=== PATIENT | female | born 1950 | race Caucasian/White ===

== ENCOUNTER 2016-11-06 09:20 | Outpatient (CLI) | payer MEDICARE, OTHER ==
[2013-12-21 09:33] VITALS: BP 140/82
== END 2016-11-06 09:21 ==
LOC: LAB 09:20
PROVIDERS: ATTEND Family Medicine
DX: E11.9 Type 2 diabetes mellitus without complications (principal)
CPT/HCPCS: 36415; 83036

== ENCOUNTER 2017-05-17 10:34 | Outpatient (CLI) | payer MEDICARE, OTHER ==
[2013-12-21 09:33] VITALS: BP 140/82
== END 2017-05-17 10:35 ==
LOC: LAB 10:34
PROVIDERS: ATTEND Family Medicine
DX: E11.9 Type 2 diabetes mellitus without complications (principal); Z79.4 Long term (current) use of insulin
CPT/HCPCS: 36415; 83036

== ENCOUNTER 2017-11-22 09:39 | Outpatient (CLI) | payer MEDICARE, OTHER ==
[2013-12-21 09:33] VITALS: BP 140/82
[2017-11-22 10:30] LABS: BASOPHILS % 0.4 (0.0-1.5); EOSINOPHILS % 2.2 % (0.0-6.8); MEAN CORPUSCULAR HEMOGLOBIN 29.4 pg (28.0-34.0); MEAN CORPUSCULAR VOLUME 89.1 fl (80.0-100.0); MONOCYTES % 5.4 % (0.0-11.0); NEUTROPHILS # 3.3 # k/uL (1.4-7.7)
[2017-11-22 10:48] LABS: eGFR (African) > 60; eGFR (Non-African) > 60
== END 2017-11-22 09:40 ==
LOC: LAB 09:39
PROVIDERS: ATTEND Family Medicine
DX: E11.9 Type 2 diabetes mellitus without complications (principal); E78.00 Pure hypercholesterolemia, unspecified; I10 Essential (primary) hypertension
CPT/HCPCS: 36415; 80053; 80061; 83036; 85025

== ENCOUNTER 2018-03-03 08:40 | Outpatient (CLI) | payer MEDICARE, OTHER ==
[2013-12-21 09:33] VITALS: BP 140/82
== END 2018-03-03 08:42 ==
LOC: LAB 08:40
PROVIDERS: ATTEND Family Medicine
DX: E11.9 Type 2 diabetes mellitus without complications (principal)
CPT/HCPCS: 36415; 83036

== ENCOUNTER 2018-05-02 09:45 | Outpatient (CLI) | payer MEDICARE, OTHER ==
[2013-12-21 09:33] VITALS: BP 140/82
== END 2018-05-02 09:50 ==
LOC: LAB 09:45
PROVIDERS: ATTEND Family Medicine
DX: E11.9 Type 2 diabetes mellitus without complications (principal)
CPT/HCPCS: 36415; 83036

== ENCOUNTER 2018-08-06 08:39 | Outpatient (CLI) | payer MEDICARE, OTHER ==
[2013-12-21 09:33] VITALS: BP 140/82
== END 2018-08-06 08:40 ==
LOC: LAB 08:39
PROVIDERS: ATTEND Family Medicine
DX: E11.9 Type 2 diabetes mellitus without complications (principal); Z79.4 Long term (current) use of insulin
CPT/HCPCS: 36415; 83036

== ENCOUNTER 2018-10-10 15:27 | Inpatient (IN) | payer MEDICARE, OTHER ==
[2018-10-10] MEDS ORDERED: ONDANSETRON HCL/PF 4 MG/ 2ML VIAL IVP ONE (15:41)
--- NOTE | 2018-10-10 15:41 | ED Physician Documentation ---
General Adult - HISTORIAN Historian: patient - HPI Stated Complaint: I feel terrible Chief Complaint: General Adult Additional Information: Patient presents to ED via Dr. Cody's office with chills, vomiting, malaise, and decreased appetite since Saturday. Influenza was negative. Onset: days ago (3) Timing: still present Severity: moderate - ROS CONST: fever, weakness EYES/ENT: none CVS/RESP: denies: cough GI/: vomiting. denies: abdominal pain, problems urinating MS/SKIN/LYMPH: none NEURO/PSYCH: denies: headache - PAST HX Past History: none Other History: diabetes Type 2 Allergies/Adverse Reactions: Allergies Allergy/AdvReac Type Severity Reaction Status Date / Time No Known Drug Allergies Allergy Verified 10/10/18 17:46 Home Medications: Ambulatory Orders Medication Instructions Recorded Aspirin [Aspirin Ec] 81 mg PO DAILY #90 u2 11/14/12 - SOCIAL HX Smoking History: non-smoker Alcohol Use: none Drug Use: none - FAMILY HX Family History: No - VITAL SIGNS Vital Signs: Vital Signs Temp Pulse Resp BP Pulse Ox 140/82 12/21/13 09:33 - REVIEWED ASSESSMENTS Nursing Assessment Reviewed: Yes Vitals Reviewed: Yes Progress - Progress Progress: 1700 Patient feeling better after IV fluids. [address] Cody for admission, he agrees. ED Results Lab/Radiology - Radiology Radiology Impressions: Report Submission Date: Oct 10, 2018 6:14:58 PM ORANGE PICKER MACHINE OPERATOR Patient Study Name: ORIANA DALTON Date: Oct 10, 2018 5:52:24 PM ORANGE PICKER MACHINE OPERATOR Modality Type: CT\SR Gender: F Description: CT ABD PELVIS W/O CO : 50 Institution: [facility] Physician: DAVID HEALY Computed tomography abdomen pelvis without contrast History: Vomiting and leukocytosis Findings: Transverse abdomen and pelvis sections are obtained without contrast. There are no comparisons. Minimal bibasilar atelectasis, calcified left lower lobe granuloma, partially contracted gallbladder, mild aortoiliac atherosclerosis, and mild asymmetric left perinephric stranding are observed. The right kidney, adrenals, spleen, liver, pancreas, and mesenteric structures are normal. Bowel loops exhibit normal caliber and wall thickness including a normal appendix. Pelvic sections reveal multiple small uterine fibroids and unremarkable urinary bladder. Pelvic bowel loops are within normal limits. The urinary bladder is unremarkable. Impression: 1. Mild left perinephric stranding. Recommend correlation with urinalysis as this finding is nonspecific. No evidence of obstructive uropathy or urolithiasis. 2. Uterine fibroids. Electronically signed on Oct 10, 2018 6:14:58 PM ORANGE PICKER MACHINE OPERATOR by: Leoncio Mcmahan - Orders Orders: ED Orders Category Date Time Status Place IV Lock 1T Care 10/10/18 15:34 Active CHEST 2VIEW [RAD] Stat Exams 10/10/18 Ordered CBC/PLATELET/DIFF Routine Lab 10/10/18 Ordered CMP Routine Lab 10/10/18 Ordered General Adult Physical Exam - PHYSICAL EXAM GENERAL APPEARANCE: ill-appearing EENT: BRENDA, dry mucous membranes NECK: supple RESPIRATORY: no resp distress, breath sounds normal. No: wheezes CVS: reg rate & rhythm, heart sounds normal, no murmur ABDOMEN: soft, normal bowel sounds, no distension, non-tender BACK: no CVA tenderness SKIN: warm/dry, pallor EXTREMITIES: non-tender, no edema NEURO: oriented X3, motor nml, mood/affect nml Discharge Clincal Impression: Fever of unknown origin Elevated WBC count Qualifiers: Leukocytosis type: unspecified Qualified Code(s): D72.829 - Elevated white blood cell count, unspecified Referrals: Toñito Cody MD [Primary Care Provider] - 2 Days Condition: Fair Disposition: ADMITTED INPATIENT Decision to Admit: [id number] Date of Decison to Admit: 10/10/18 Decision Time: 19:24
[2018-10-10] MEDS ORDERED: 0.9 % SODIUM CHLORIDE 1,000 ML IV ONE ×3 (16:14→16:46)
[2018-10-10 16:37] LABS: eGFR (Non-African) 37
[2018-10-10] MEDS ORDERED: INSULIN REGULAR, HUMAN 100 UNIT/ML 3ML VIAL IV ONE ×2 (16:46→19:03)
[2018-10-10 16:55] LABS: MEAN CORPUSCULAR HEMOGLOBIN 29.4 pg (28.0-34.0)
[2018-10-10 16:56] LABS: MONOCYTES % 10 % (0-11); SEGMENTED NEUTROPHILS % 82 % (39-79)
[2018-10-10] MEDS ORDERED: PIPERACILLIN SODIUM/TAZOBACTAM 3.375 GM in 0.9 % SODIUM CHLORIDE(MINIBAG+ 100 ML IV ONE (18:38)
[2018-10-10 18:49] LABS: APPEARANCE,URINE CLOUDY (CLEAR); COLOR,URINE BROWN (YELLOW); OCCULT BLOOD,URINE 2+ (NEGATIVE); UROBILINOGEN URINE 0.2 Eu (0.2-1.0)
[2018-10-10] MEDS ORDERED: VANCOMYCIN HCL 1 GM in 0.9 % SODIUM CHLORIDE 500 ML IV ONE (19:54)
[2018-10-10] MEDS: 0.9 % SODIUM CHLORIDE 1,000 ML IV SCH (20:02)
[2018-10-10] MEDS ORDERED: DOCUSATE SODIUM 100 MG CAPSULE PO PRN (20:04)
[2018-10-10] MEDS ORDERED: HYDROcodone /APAP 5/325 1 EACH TABLET PO PRN (20:04)
[2018-10-10] MEDS ORDERED: MAG HYDROX/ALUMINUM HYD/SIMETH 30 ML UDC PO PRN (20:04)
[2018-10-10] MEDS ORDERED: BISACODYL 5 MG TABLET.DR PO PRN (20:04)
[2018-10-10] MEDS ORDERED: VANCOMYCIN HCL 1 GM VIAL IV ONE (20:05)
[2018-10-10] MEDS ORDERED: 0.9 % SODIUM CHLORIDE 500 ML IV ONE (20:06)
[2018-10-10 20:56] VITALS: BMI 27.6
--- NOTE | 2018-10-10 21:29 | History and Physical Report ---
History of Present Illnes - History of Present Illness Reason for Visit: Sepsis History of Present Illness: This is a 68 year old female patient, well known to me who presented to my office this afternoon with fever and malaise for the past two days. She denied any focal illness or symptoms. Her fever on presentation to the office was 101.7, influenza was negative and urinalysis (dip) was clear. Due to her degree of illness, she was sent to the ER for further evaluation. While there, she had a chest x ray done (clear), as well as a CT of her abdomen and pelvis, which was unrevealing. Repeat UA with micro was also negative for infection. Her white count was markedly elevated at 26K with a left shift, she was azotemic, and hyponatremic (126) also. She is admitted with a diagnosis of sepsis/fever of unknown origin/hyponatremia/leukocytosis. - Past Medical History Cardiac: HTN, Hyperlipidemia. 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 Alcohol: None Drugs: None Lives: With Family Domestic Violence: Negative - Health Maintenance Health Maintenance: Cholesterol Influenza Vaccine: Current for this Influenza Season Pneumonia Vaccine: Yes Resuscitation Status: Resusciation Status Resuscitation Status Full Code - Unable to Obtain History Unable to Obtain: No Review of Systems - Review of Systems Constitutional: Fever, Chills, Sweats, Weakness, Malaise Eyes: negative: pain, vision change ENT: negative: Ear Pain Respiratory: negative: Cough, Shortness of Breath Cardiovascular: negative: Chest Pain Gastrointestinal: Nausea, Vomiting. negative: Abdominal Pain, Diarrhea Genitourinary: negative: Dysuria, Frequency, Incontinence Musculoskeletal: negative: Neck Pain Skin: negative: Rash Neurological: Weakness. negative: Change in Speech, Confusion - Medications/Allergies Allergies/Adverse Reactions: Allergies Allergy/AdvReac Type Severity Reaction Status Date / Time No Known Drug Allergies Allergy Verified 10/10/18 17:46 Current Inpatient Medications: Current Inpatient Medications Aspirin (Ecotrin) 81 mg PO DAILY [facility] Bisacodyl (Dulcolax) 10 mg PO DAILY PRN PRN Reason: Constipation Docusate Sodium (Colace) 100 mg PO DAILY PRN PRN Reason: Constipation Heparin Sodium (Porcine) (Heparin) 5,000 unit SQ Q8 [facility] Sodium Chloride (Normal Saline) 1,000 mls @ 100 mls/hr IV Q10H [facility] Last Admin: 10/10/18 20:02 Dose: 100 mls/hr Piperacillin Sod/Tazobactam (Sod 3.375 gm/ Sodium Chloride) 100 mls @ 200 mls/hr IV Q6 [facility] Vancomycin HCl 1 gm/ Sodium (Chloride) 500 mls @ 250 mls/hr IV NOW ONE Stop: 10/10/18 21:53 Miscellaneous (Chem Sticks) 1 each CHEMQ [facility] Last Admin: 10/10/18 17:30 Dose: 1 each Miscellaneous (Chem Sticks) 1 each CHEMQID [facility] Last Admin: 10/10/18 19:10 Dose: 1 each Miscellaneous (Chem Sticks) 1 each CHEMQID PRN PRN Reason: blood sugar Last Admin: 10/10/18 19:55 Dose: 1 each Miscellaneous (Chem Sticks) 1 each CHEMQID [facility]; Protocol Last Admin: 10/10/18 21:17 Dose: 1 each Miscellaneous (Vancomycin Pharmacy To Dose) 1 each IV NOW [facility] Sodium Chloride (Normal Saline Flush) 3 ml IV BID [facility] Exam - Exam Vital Signs: Vital Signs (72 hours) 10/10/18 10/10/18 10/10/18 15:33 20:19 20:50 Temperature 38.3 F L 99 F 98.6 F Pulse Rate [ 99 H 93 H 79 Pulse ox] Respiratory 16 18 20 Rate Blood Pressure 134/64 114/72 111/57 [Right Arm] O2 Sat by Pulse 94 94 96 Oximetry 10/10/18 20:51 Temperature 98.6 F Pulse Rate [ 79 Pulse ox] Respiratory 20 Rate Blood Pressure 111/57 [Right Arm] O2 Sat by Pulse 96 Oximetry General: Alert, Oriented to Person, Oriented to Place, Oriented to Time, Other (Acutely ill) HEENT: Atraumatic, PERRLA, EOMI, Hearing Grossly Normal, Other (Mucous membranes are dry) Neck: No: Stridor Lungs: Clear to auscultation, Normal air movement, Speaks full Sentences. No: Respiratory Distress, Wheezes Cardiovascular: Regular rate, Normal S1, Normal S2 Murmur: No: Systolic Murmur Murmur Location: No: Other Abdomen: Normal bowel sounds, Soft, No tenderness, No hepatospenomegaly, No masses. No: Distended, Rigid Genitourinary: No: Other Male Genitourinary: No: Other Female Genitourinary: No: Other Integumentary: Normal, [place], Warm, Dry, Decreased Turgor Extremities: No clubbing, No cyanosis, No edema Neurological: Normal speech, Strength Equal Bilat, Normal tone, Generalized Weakness Psych/Mental Status: Mental status NL - Laboratory Results Laboratory Results: Laboratory Results 10/10/18 10/10/18 10/10/18 15:50 15:50 18:30 WBC 26.30 H RBC 4.64 Hgb 13.7 Hct 41.2 MCV 89.0 MCH 29.4 MCHC 33.1 RDW 12.7 Plt Count 268 Seg Neutrophils % 82 H Band Neutrophils % 4 Lymphocytes % 4 L Monocytes % 10 Sodium 126 L Potassium 4.1 Chloride 87 L Carbon Dioxide 21 L BUN 29 H Creatinine 1.48 H Estimated Creat Clear 52 Est GFR ( Amer) > 60 Est GFR (Non-Af Amer) 37 L Glucose 451 H Calcium 9.5 Total Bilirubin 2.0 H AST 27 ALT 19 Alkaline Phosphatase 122 Total Protein 7.1 Albumin 4.4 Urine Color Brown Urine Appearance Cloudy H Urine pH 5.0 Ur Specific [place] 1.015 Urine Protein 1+ H Urine Ketones 3+ H Urine Occult Blood 2+ H Urine Nitrite Negative Urine Bilirubin 1+ H Urine Urobilinogen 0.2 Ur Leukocyte Esterase Negative Urine Glucose 3+ H Assessment/Plan - Assessment/Plan (1) Sepsis Status: Acute Current Visit: Yes Qualifiers: Sepsis type: sepsis due to unspecified organism Qualified Code(s): A41.9 - Sepsis, unspecified organism Assessment: Blood cultures have been obtained Broad spectrum antibiotics (Zosyn and Vancomycin) (2) Fever of unknown origin Status: Acute Current Visit: Yes Assessment: Antipyretics Treat cause (sepsis) (3) Diabetes mellitus Status: Acute Current Visit: Yes Qualifiers: Diabetes mellitus type: type 2 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 insulin use: with usp use Diabetes mellitus complication status: without complication Qualified Code(s): E11.9 - Type 2 diabetes mellitus without complications; Z79.4 - senior living (current) use of insulin Assessment: Continue Lantus Add sliding scale insulin (4) Hyponatremia Status: Acute Current Visit: Yes Assessment: Hydrate with NS (5) Dehydration Status: Acute Current Visit: Yes (6) Elevated WBC count Status: Acute Current Visit: Yes Qualifiers: Leukocytosis type: unspecified Qualified Code(s): D72.829 - Elevated white blood cell count, unspecified Assessment: Due to sepsis VTE Assessment - RISK FACTOR SCORE VTE RISK FACTOR SCORES: AGE OVER 60 YEARS, SEPSIS - RISK VTE MODERATE RISK: SCORE OF 2 (RISK PROXIMAL DVT 2-4%) PROPHYAXIS NEEDED (On Lovenox)
[2018-10-10] MEDS: INSULIN GLARGINE,HUM.REC.ANLOG 100 UNIT/ML PEN.INJCTR SQ SCH (22:50)
[2018-10-10] MEDS: HEPARIN SODIUM 5000 UNIT/1 ML SQ SCH (22:53)
[2018-10-10] MEDS: SALINE FLUSH 10 ML DISP.SYRIN IV SCH (23:27)
[2018-10-11] MEDS: PIPERACILLIN SODIUM/TAZOBACTAM 3.375 GM in 0.9 % SODIUM CHLORIDE(MINIBAG+ 100 ML IV SCH ×4 (00:01→17:33)
--- NOTE | 2018-10-11 04:26 | Diagnostic Imaging Report ---
DAVID HEALY [facility] [address] [facility] [address] [place] [address]. [id number] Report Submission Date: Oct 10, 2018 4:22:32 PM DEMAND PLANNER Patient Study Name: ORIANA DALTON Date: Oct 10, 2018 3:58:41 PM DEMAND PLANNER Modality Type: DX Gender: F Description: CHEST 2VIEW : 50 Institution: [facility] Physician: DAVID HEALY Examination: PA and lateral chest. History: Evaluate lung devlin. Comparison exam: None provided. Findings: PA and lateral views of the chest demonstrates a normal cardiac and mediastinal silhouette. Tortuous aorta. No focal infiltrate. No blunting of the costophrenic margins. Scattered granuloma. Osseous structures are appropriate for age. Impression: No acute pulmonary process. Electronically signed on Oct 10, 2018 4:22:32 PM DEMAND PLANNER by: Star COUGHLIN
[2018-10-11] MEDS: 0.9 % SODIUM CHLORIDE 1,000 ML IV SCH ×2 (04:27→15:55)
--- NOTE | 2018-10-11 04:27 | Diagnostic Imaging Report ---
DAVID HEALY [facility] [address] [facility] [address] [place], [place]. 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 There are no comparisons. Minimal bibasilar atelectasis, calcified left lower lobe granuloma, partially contracted gallbladder, mild aortoiliac atherosclerosis, and mild asymmetric left perinephric stranding are observed. The right kidney, adrenals, spleen, liver, pancreas, and mesenteric structures are normal. Bowel loops exhibit normal caliber and wall thickness including a normal appendix. Pelvic sections reveal multiple small uterine fibroids and unremarkable urinary bladder. Pelvic bowel loops are within normal limits. The urinary bladder is unremarkable. Impression: 1. Mild left perinephric stranding. Recommend correlation with urinalysis as this finding is nonspecific. No evidence of obstructive uropathy or urolithiasis. 2. Uterine fibroids. Electronically signed on Oct 10, 2018 6:14:58 PM UTILITY LOCATE TECHNICIAN by: Leoncio COUGHLIN
[2018-10-11] MEDS ORDERED: PIPERACILLIN SODIUM/TAZOBACTAM 3.375 GM VIAL IV ONE ×4 (04:33→23:23)
[2018-10-11] MEDS ORDERED: 0.9 % SODIUM CHLORIDE(MINIBAG+ 100 ML IV ONE ×3 (04:34→23:23)
[2018-10-11] MEDS: HEPARIN SODIUM 5000 UNIT/1 ML SQ SCH ×3 (05:30→23:30)
[2018-10-11] MEDS ORDERED: VANCOMYCIN PHARMACY TO DOSE IV SCH (07:00)
[2018-10-11 07:06] LABS: MEAN CORPUSCULAR HEMOGLOBIN 29.6 pg (28.0-34.0)
[2018-10-11 07:11] LABS: MONOCYTES % 9 % (0-11); SEGMENTED NEUTROPHILS % 85 % (39-79)
[2018-10-11 07:45] LABS: eGFR (Non-African) 44
[2018-10-11] MEDS: SALINE FLUSH 10 ML DISP.SYRIN IV SCH ×2 (08:42→23:50)
[2018-10-11] MEDS: ASPIRIN EC 81 MG TABLET.DR PO SCH (08:42)
[2018-10-11] MEDS: INSULIN LISPRO 100 UNIT/ML 3ML VIAL SQ SCH ×4 (08:42→23:33)
--- NOTE | 2018-10-11 09:59 | Inpatient Progress Note ---
Subjective - Required Recertification Statement I anticipate X number of days because-include discharge plan: 2 - Review of Systems Events since last encounter: Lupe is feeling much better today. She had a low grade fever this morning. Her white count is minimally decreased. Her blood pressure is stable. As expected, her blood sugar is elevated, and she is requiring SSI. She is urinating well and remains on IVF. She is also eating well this morning. She is very weak, and had difficulty making it to the bathroom, but did so much more easily than yesterday. General: Chills, Fatigue, Malaise. Denies: Night Sweats HEENT: Denies: Head Aches, Visual Changes Pulmonary: Denies: Dyspnea, Cough Cardiovascular: Denies: Chest Pain, Palpitations Gastrointestinal: Nausea. Denies: Vomiting Genitourinary: Denies: Dysuria, Frequency Musculoskeletal: Denies: Neck Pain Neurological: Weakness. Denies: Change in Speech, Confusion Objective - Exam Vitals and I&O: Vital Signs Temp 100 F H 10/11/18 09:40 Pulse 92 H 10/11/18 09:40 Resp 16 10/11/18 09:40 BP 124/66 10/11/18 09:40 Pulse Ox 93 10/11/18 09:40 Intake & Output 10/10/18 10/10/18 10/11/18 11:59 23:59 11:59 Intake Total 200 860 Output Total 700 1100 Balance -500 -240 Weight 79.832 kg Intake: IV 200 500 Left Antecubital 200 500 Oral 360 Output: Urine 700 1100 Other: Voiding Method Toilet Toilet # Voids 1 # Bowel Movements 0 General: Alert, Oriented to Person, Oriented to Place, Oriented to Time HEENT: Atraumatic, PERRLA. No: Nose Mucous membr. moist/[place] (dry) Neck: Supple, No JVD Lungs: Clear to auscultation, Normal air movement, Speaks full Sentences. No: Prolonged Expiration Cardiovascular: Regular rate, Normal S1, Normal S2 Abdomen: Normal bowel sounds, Soft, No tenderness Extremities: No clubbing, No cyanosis, No edema, Normal pulses Skin: Normal, [place], Warm Neurological: Normal speech, Generalized Weakness Psych/Mental Status: Mental status NL - Results Results: Laboratory Results WBC 23.30 K/ul (4.00-12.00) H 10/11/18 06:00 RBC 3.93 M/ul (3.90-5.20) 10/11/18 06:00 Hgb 11.6 g/dL (12.0-16.0) L 10/11/18 06:00 Hct 34.9 % (34.5-46.5) 10/11/18 06:00 MCV 89.0 fl (80.0-100.0) 10/11/18 06:00 MCH 29.6 pg (28.0-34.0) 10/11/18 06:00 MCHC 33.3 g/dL (30.0-36.0) 10/11/18 06:00 RDW 13.1 % (11.3-14.3) 10/11/18 06:00 Plt Count 238 K/mm3 (130-400) 10/11/18 06:00 Seg Neutrophils % 85 % (39-79) H 10/11/18 06:00 Band Neutrophils % 2 % (0-12) 10/11/18 06:00 Lymphocytes % 4 % (16-50) L 10/11/18 06:00 Monocytes % 9 % (0-11) 10/11/18 06:00 Sodium 136 mmol/L (136-145) 10/11/18 06:00 Potassium 3.5 mmol/L (3.5-5.1) 10/11/18 06:00 Chloride 100 mmol/L (98-107) 10/11/18 06:00 Carbon Dioxide 17 mmol/L (22-30) L 10/11/18 06:00 BUN 23 mg/dL (7-17) H 10/11/18 06:00 Creatinine 1.27 mg/dL (0.52-1.04) H 10/11/18 06:00 Estimated Creat Clear 62 10/11/18 06:00 Est GFR ( Amer) > 60 (60-) 10/11/18 06:00 Est GFR (Non-Af Amer) 44 (60-) L 10/11/18 06:00 Glucose 393 mg/dL (74-106) H 10/11/18 06:00 Calcium 8.5 mg/dL (8.4-10.2) 10/11/18 06:00 Total Bilirubin 2.0 mg/dL (0.2-1.3) H 10/10/18 15:50 AST 27 U/L (15-46) 10/10/18 15:50 ALT 19 U/L (13-69) 10/10/18 15:50 Alkaline Phosphatase 122 U/L (38-126) 10/10/18 15:50 Total Protein 7.1 g/dL (6.3-8.2) 10/10/18 15:50 Albumin 4.4 g/dL (3.5-5.0) 10/10/18 15:50 Urine Color Brown (YELLOW) 10/10/18 18:30 Urine Appearance Cloudy (CLEAR) H 10/10/18 18:30 Urine pH 5.0 (5.0 - 8.0) 10/10/18 18:30 Ur Specific [place] 1.015 (1.010-1.030) 10/10/18 18:30 Urine Protein 1+ mg/dL (NEGATIVE) H 10/10/18 18:30 Urine Ketones 3+ mg/dL (NEGATIVE) H 10/10/18 18:30 Urine Occult Blood 2+ (NEGATIVE) H 10/10/18 18:30 Urine Nitrite Negative (NEGATIVE) 10/10/18 18:30 Urine Bilirubin 1+ (NEGATIVE) H 10/10/18 18:30 Urine Urobilinogen 0.2 Eu (0.2-1.0) 10/10/18 18:30 Ur Leukocyte Esterase Negative (NEGATIVE) 10/10/18 18:30 Urine Glucose 3+ mg/dL (NEGATIVE) H 10/10/18 18:30 Assessment/Plan - Assessment/Plan (1) Sepsis Status: Acute Current Visit: Yes Qualifiers: Sepsis type: sepsis due to unspecified organism Qualified Code(s): A41.9 - Sepsis, unspecified organism Assessment: Continue broad spectrum antibiotics, await blood culture results Check a CXR today to r/o a pneumonia that was not visible earlier due to her dehydration (2) Fever of unknown origin Status: Acute Current Visit: Yes Assessment: Continue to await blood cultures [place] WBC Check CXR (3) Diabetes mellitus Status: Acute Current Visit: Yes Qualifiers: Diabetes mellitus type: type 2 Diabetes mellitus alf insulin use: with alf use Diabetes mellitus complication status: without complication Qualified Code(s): E11.9 - Type 2 diabetes mellitus without complications; Z79.4 - terminal manager (current) use of insulin Assessment: Continue Levemir/SSI (4) Hyponatremia Status: Acute Current Visit: Yes Assessment: Now normalized with hydration (5) Dehydration Status: Acute Current Visit: Yes Assessment: Improved Plan: Continue IVF (6) Elevated WBC count Status: Acute Current Visit: Yes Qualifiers: Leukocytosis type: unspecified Qualified Code(s): D72.829 - Elevated white blood cell count, unspecified Assessment: Follow
--- NOTE | 2018-10-11 12:03 | Diagnostic Imaging Report ---
[facility] SURG [facility] [address] [facility].[address] [address] Report Submission Date: Oct 11, 2018 11:03:27 AM GUITAR REPAIRER Patient Study Name: ORIANA DALTON Date: Oct 11, 2018 10:23:49 AM GUITAR REPAIRER Modality Type: DX Gender: F Description: CHEST 2VIEW : 50 Institution: [facility] Physician: [facility]/MED SURG Chest, 2 view History: FEVER Findings: The heart size is normal. Small calcified granuloma seen in the right chest. There is blunting the bilateral costophrenic angles consistent with trace effusions, left greater than right and new. The osseous structures are normal. Impression: One. Small bilateral pleural effusions now present, left greater than right. Electronically signed on Oct 11, 2018 11:03:27 AM GUITAR REPAIRER by: Lui COUGHLIN
[2018-10-11] MEDS ORDERED: 0.9 % SODIUM CHLORIDE 0 ML IV ONE (12:27)
[2018-10-11] MEDS ORDERED: 0.9 % SODIUM CHLORIDE 100 ML IV ONE (12:29)
[2018-10-11] MEDS ORDERED: ACETAMINOPHEN 325 MG TABLET ONE (14:16)
[2018-10-11] MEDS: ACETAMINOPHEN 325 MG TABLET PO PRN ×2 (14:20→19:14)
[2018-10-11] MEDS ORDERED: 0.9 % SODIUM CHLORIDE 1,000 ML IV ONE (15:52)
[2018-10-11] MEDS ORDERED: ONDANSETRON HCL/PF 4 MG/ 2ML VIAL IVP PRN (22:31)
[2018-10-11] MEDS: INSULIN GLARGINE,HUM.REC.ANLOG 100 UNIT/ML PEN.INJCTR SQ SCH (23:38)
[2018-10-12] MEDS ORDERED: 0.9 % SODIUM CHLORIDE 1,000 ML IV ONE ×2 (00:44→11:53)
[2018-10-12] MEDS: PIPERACILLIN SODIUM/TAZOBACTAM 3.375 GM in 0.9 % SODIUM CHLORIDE(MINIBAG+ 100 ML IV SCH ×4 (00:46→19:37)
[2018-10-12] MEDS: 0.9 % SODIUM CHLORIDE 1,000 ML IV SCH ×2 (00:48→14:46)
[2018-10-12] MEDS ORDERED: PIPERACILLIN SODIUM/TAZOBACTAM 3.375 GM VIAL IV ONE ×3 (05:09→21:46)
[2018-10-12] MEDS ORDERED: 0.9 % SODIUM CHLORIDE(MINIBAG+ 100 ML IV ONE ×2 (05:10→21:48)
[2018-10-12] MEDS: HEPARIN SODIUM 5000 UNIT/1 ML SQ SCH ×3 (05:14→22:01)
[2018-10-12 07:45] LABS: eGFR (Non-African) > 60
[2018-10-12 07:46] LABS: MEAN CORPUSCULAR HEMOGLOBIN 29.4 pg (28.0-34.0)
[2018-10-12] MEDS: INSULIN LISPRO 100 UNIT/ML 3ML VIAL SQ SCH ×4 (07:54→21:52)
[2018-10-12] MEDS: ASPIRIN EC 81 MG TABLET.DR PO SCH (09:44)
[2018-10-12] MEDS: SALINE FLUSH 10 ML DISP.SYRIN IV SCH ×2 (09:45→21:50)
--- NOTE | 2018-10-12 12:18 | Inpatient Progress Note ---
Subjective - Required Recertification Statement I anticipate X number of days because-include discharge plan: 2 - Review of Systems Events since last encounter: Lupe is doing much better today. She is no longer febrile, and her white count has come down to 11K from 23K. Her blood sugars are better controlled. She is eating well. Her blood cultures grew out gram negative rods in her anaerobic bottle. ID/sensitivity are pending and for the meantime, she continues to be on Vancomycin and Zosyn. It appears that her vancomycin was ordered as a one time dose, but showed up as an active medication on orders. I have restarted it today. Her potassium is low this morning, so I have changed her fluids to NS with 40 meq of KCl. General: Chills. Denies: Night Sweats HEENT: Denies: Head Aches, Visual Changes Pulmonary: Denies: Dyspnea, Cough Cardiovascular: Denies: Chest Pain, Palpitations Gastrointestinal: Denies: Nausea, Vomiting Genitourinary: Denies: Dysuria Musculoskeletal: Denies: Neck Pain, Shoulder Pain Neurological: Weakness. Denies: Confusion Objective - Exam Vitals and I&O: Vital Signs Temp 99.2 F 10/12/18 09:06 Pulse 99 H 10/12/18 09:06 Resp 18 10/12/18 09:06 BP 122/70 10/12/18 09:06 Pulse Ox 92 10/12/18 09:06 Intake & Output 10/11/18 10/12/18 10/12/18 23:59 11:59 23:59 Intake Total 1660 3280 Output Total 1000 1200 Balance 660 2080 Intake: IV 2800 Left Antecubital 2800 Oral 1660 480 Output: Urine 1000 1200 Other: Voiding Method Toilet Toilet # Voids 2 # Bowel Movements 0 General: Alert, Oriented to Person, Oriented to Place, Oriented to Time, Cooperative HEENT: Atraumatic, PERRLA Neck: Supple Lungs: Clear to auscultation, Normal air movement, Speaks full Sentences Cardiovascular: Regular rate, Normal S1 Abdomen: Normal bowel sounds, Soft, No tenderness Extremities: No clubbing, No cyanosis, No edema Skin: Normal, [place] Neurological: Normal speech Psych/Mental Status: Mental status NL - Results Results: Laboratory Results WBC 11.50 K/ul (4.00-12.00) 10/12/18 06:10 RBC 3.76 M/ul (3.90-5.20) L 10/12/18 06:10 Hgb 11.0 g/dL (12.0-16.0) L 10/12/18 06:10 Hct 33.1 % (34.5-46.5) L 10/12/18 06:10 MCV 88.0 fl (80.0-100.0) 10/12/18 06:10 MCH 29.4 pg (28.0-34.0) 10/12/18 06:10 MCHC 33.4 g/dL (30.0-36.0) 10/12/18 06:10 RDW 13.0 % (11.3-14.3) 10/12/18 06:10 Plt Count 233 K/mm3 (130-400) 10/12/18 06:10 Seg Neutrophils % 85 % (39-79) H 10/11/18 06:00 Band Neutrophils % 2 % (0-12) 10/11/18 06:00 Lymphocytes % 4 % (16-50) L 10/11/18 06:00 Monocytes % 9 % (0-11) 10/11/18 06:00 Sodium 135 mmol/L (136-145) L 10/12/18 06:10 Potassium 3.0 mmol/L (3.5-5.1) L 10/12/18 06:10 Chloride 102 mmol/L (98-107) 10/12/18 06:10 Carbon Dioxide 20 mmol/L (22-30) L 10/12/18 06:10 BUN 14 mg/dL (7-17) 10/12/18 06:10 Creatinine 0.87 mg/dL (0.52-1.04) 10/12/18 06:10 Estimated Creat Clear 91 10/12/18 06:10 Est GFR ( Amer) > 60 (60-) 10/12/18 06:10 Est GFR (Non-Af Amer) > 60 (60-) 10/12/18 06:10 Glucose 232 mg/dL (74-106) H 10/12/18 06:10 Calcium 8.0 mg/dL (8.4-10.2) L 10/12/18 06:10 Total Bilirubin 0.9 mg/dL (0.2-1.3) 10/12/18 06:10 AST 34 U/L (15-46) 10/12/18 06:10 ALT 22 U/L (13-69) 10/12/18 06:10 Alkaline Phosphatase 99 U/L (38-126) 10/12/18 06:10 Total Protein 5.2 g/dL (6.3-8.2) L 10/12/18 06:10 Albumin 2.9 g/dL (3.5-5.0) L 10/12/18 06:10 Urine Color Brown (YELLOW) 10/10/18 18:30 Urine Appearance Cloudy (CLEAR) H 10/10/18 18:30 Urine pH 5.0 (5.0 - 8.0) 10/10/18 18:30 Ur Specific [place] 1.015 (1.010-1.030) 10/10/18 18:30 Urine Protein 1+ mg/dL (NEGATIVE) H 10/10/18 18:30 Urine Ketones 3+ mg/dL (NEGATIVE) H 10/10/18 18:30 Urine Occult Blood 2+ (NEGATIVE) H 10/10/18 18:30 Urine Nitrite Negative (NEGATIVE) 10/10/18 18:30 Urine Bilirubin 1+ (NEGATIVE) H 10/10/18 18:30 Urine Urobilinogen 0.2 Eu (0.2-1.0) 10/10/18 18:30 Ur Leukocyte Esterase Negative (NEGATIVE) 10/10/18 18:30 Urine Glucose 3+ mg/dL (NEGATIVE) H 10/10/18 18:30 Assessment/Plan - Assessment/Plan (1) Sepsis Status: Acute Current Visit: Yes Qualifiers: Sepsis type: sepsis due to unspecified organism Qualified Code(s): A41.9 - Sepsis, unspecified organism Assessment: Blood cultures are now growing out gram negative rods in the aerobic and anaerobic bottles of both specimens Continue Vancomycin and Zosyn Await ID and sensitivities. (2) Fever of unknown origin Status: Acute Current Visit: Yes Assessment: Improved Plan: Continue tylenol and treatment of sepsis (3) Diabetes mellitus Status: Acute Current Visit: Yes Qualifiers: Diabetes mellitus type: type 2 Diabetes mellitus mcfp insulin use: with terminal gauger use Diabetes mellitus complication status: without complication Qualified Code(s): E11.9 - Type 2 diabetes mellitus without complications; Z79.4 - terminal gauger (current) use of insulin Assessment: Continue SSI (4) Hyponatremia Status: Acute Current Visit: Yes Assessment: Resolved (5) Dehydration Status: Acute Current Visit: Yes Assessment: Continue IVF, but change to NS with 40 meq of KCl (6) Elevated WBC count Status: Acute Current Visit: Yes Qualifiers: Leukocytosis type: unspecified Qualified Code(s): D72.829 - Elevated white blood cell count, unspecified Assessment: Resolved (7) Hypokalemia Status: Acute Current Visit: Yes Assessment: Change IVF to NS with 40 meq of KCl.
[2018-10-12] MEDS: ACETAMINOPHEN 325 MG TABLET PO PRN (12:39)
[2018-10-12] MEDS ORDERED: VANCOMYCIN HCL 1 GM in 0.9 % SODIUM CHLORIDE 250 ML IV SCH (13:00)
[2018-10-12] MEDS ORDERED: VANCOMYCIN HCL 1 GM VIAL IV ONE (14:40)
[2018-10-12] MEDS ORDERED: 0.9 % SODIUM CHLORIDE 250 ML IV ONE (14:40)
[2018-10-12] MEDS ORDERED: 0.9 % SODIUM CHLORIDE 100 ML IV ONE (18:23)
[2018-10-12] MEDS: POTASSIUM CHLORIDE 20 MEQ/NS 1,000 ML IV SCH ×2 (19:38→23:34)
[2018-10-12] MEDS: INSULIN GLARGINE,HUM.REC.ANLOG 100 UNIT/ML PEN.INJCTR SQ SCH (21:59)
[2018-10-13] MEDS: PIPERACILLIN SODIUM/TAZOBACTAM 3.375 GM in 0.9 % SODIUM CHLORIDE(MINIBAG+ 100 ML IV SCH ×3 (00:14→14:14)
[2018-10-13] MEDS: POTASSIUM CHLORIDE 20 MEQ/NS 1,000 ML IV SCH (03:25)
[2018-10-13] MEDS ORDERED: PIPERACILLIN SODIUM/TAZOBACTAM 3.375 GM VIAL IV ONE (04:57)
[2018-10-13] MEDS ORDERED: 0.9 % SODIUM CHLORIDE(MINIBAG+ 100 ML IV ONE ×2 (05:00→13:53)
[2018-10-13] MEDS: HEPARIN SODIUM 5000 UNIT/1 ML SQ SCH (05:13)
[2018-10-13] MEDS: INSULIN LISPRO 100 UNIT/ML 3ML VIAL SQ SCH ×2 (07:34→11:44)
[2018-10-13] MEDS: ASPIRIN EC 81 MG TABLET.DR PO SCH (09:24)
[2018-10-13] MEDS: SALINE FLUSH 10 ML DISP.SYRIN IV SCH (09:25)
[2018-10-13] MEDS ORDERED: VANCOMYCIN HCL 1 GM in 0.9 % SODIUM CHLORIDE 250 ML IV SCH (12:00)
--- NOTE | 2018-10-13 13:05 | Discharge Summary ---
Discharge Summary - Discharge Sumary History of Present Illness: This is a 68 year old female who presented to my office on the afternoon of October 10, 2018. She was febrile and diaphoretic. Her influenza and UA were negative. Due to her degree of illness, she was sent to the ER for evaluation. CT there was unrevealing. Her sodium was low at 126, and her white count was 23K. She was admitted with a diagnosis of sepsis. Home Medications: Ambulatory Orders Medication Instructions Recorded Aspirin [Aspirin Ec] 81 mg PO DAILY #90 u2 11/14/12 Allergies/Adverse Reactions: Allergies Allergy/AdvReac Type Severity Reaction Status Date / Time No Known Drug Allergies Allergy Unknown Verified 10/13/18 08:27 Patient Problems: Current Active Problems Problem Status Onset Dehydration Acute Diabetes mellitus Acute Elevated WBC count Acute Fever of unknown origin Acute Hypokalemia Acute Hyponatremia Acute Sepsis Acute Discharge Summary: She was admitted and started on Zosyn and Vancomycin. Her fever decreased, and by hospital day #3, her white count had normalized. On the morning of October 13, 2018, her blood cultures were both growing out E. coli which was pansensitive. She was discharged to home with Augmentin 875 mg po BID x 10 days and to follow up with me next week.
[2018-10-13 14:29] VITALS: BP 148/92
== END 2018-10-13 16:10 | disposition home or self-care (01) | DRG 872 ==
LOC: ED 15:27 → SOUTH 19:36 → UNDOADMIN 19:36 → SOUTH 20:27
PROVIDERS: ADMIT Family Medicine; ATTEND Family Medicine
DX: A41.51 Sepsis due to Escherichia coli [E. coli] (principal); E87.6 Hypokalemia; E86.0 Dehydration; D72.829 Elevated white blood cell count, unspecified; E11.9 Type 2 diabetes mellitus without complications; R53.1 Weakness; Z79.4 Long term (current) use of insulin
CPT/HCPCS: 36415; 71046; 74176; 80048; 80053; 81002; 85025; 85027; 87040; A9270; J1644; J1815; J2405; J2543; J3370; J3480; J7030; J7050; J7060; 87086; 96365; 96375; 99222; 99231; 99238; 99284; S1016

== ENCOUNTER 2018-10-31 08:35 | Outpatient (CLI) | payer MEDICARE, OTHER | END 2018-10-31 08:36 | LOC: LAB 08:35 | PROVIDERS: ATTEND Family Medicine | DX: E11.9 Type 2 diabetes mellitus without complications (principal); Z79.4 Long term (current) use of insulin | CPT/HCPCS: 36415; 80061; 83036 ==

== ENCOUNTER 2019-02-11 09:51 | Outpatient (CLI) | payer MEDICARE, OTHER | END 2019-02-11 09:56 | disposition home or self-care (01) | LOC: LAB 09:51 | PROVIDERS: ATTEND Family Medicine | DX: E11.9 Type 2 diabetes mellitus without complications (principal) | CPT/HCPCS: 36415; 83036 ==

== ENCOUNTER 2019-05-15 07:30 | Outpatient (CLI) | payer MEDICARE, OTHER | END 2019-05-15 07:33 | LOC: LAB 07:30 | PROVIDERS: ATTEND Family Medicine | DX: E11.9 Type 2 diabetes mellitus without complications (principal) | CPT/HCPCS: 36415; 83036 ==

== ENCOUNTER 2019-08-17 08:16 | Outpatient (CLI) | payer MEDICARE, OTHER | END 2019-08-17 08:21 | LOC: LAB 08:16 | PROVIDERS: ATTEND Family Medicine | DX: E11.9 Type 2 diabetes mellitus without complications (principal) | CPT/HCPCS: 36415; 83036 ==